=== PATIENT | male | born 1935 | race Caucasian/White ===

== ENCOUNTER 2020-04-10 07:58 | Outpatient (CLI) | payer MEDICARE, OTHER, SELFPAY ==
[2020-04-10] VITALS (12 sets, daily range): BP systolic 132–158; BP diastolic 58–75; PULSE 72–93; RESP 18–22; TEMP 36.7–37.2; O2SAT 99–100; BMI 19.1
[2020-04-10 09:34] LABS: Hematocrit 23.7 % (42.0-52.0)
[2020-04-10] MEDS: diphenhydrAMINE 25 mg Capsule PO (10:30)
[2020-04-10] MEDS: acetaminophen 325 mg Tablet PO (10:30)
[2020-04-10] MEDS: sodium chloride 0.9% (100 ml) 100 ML 50 ML (10:35)
== END 2020-04-10 07:59 | disposition home or self-care (01) ==
LOC: GILAB 08:04
PROVIDERS: Physician Assistant; PCP Family Medicine; Visit Provider Family Medicine
DX: K92.2 Gastrointestinal hemorrhage, unspecified (principal)
CPT/HCPCS: 36430; 85014; 85018; 86850; 86900; 86920; P9016

== ENCOUNTER 2020-06-08 19:50 | Outpatient (CLI) | payer MEDICARE, OTHER, SELFPAY ==
[2020-06-08 20:22] LABS: Hematocrit 25.1 % (42.0-52.0); Hemoglobin 7.7 g/dL (11.7-16.6); Mean Corpuscular HGB Conc 30.7 g/dL (30.0-36.0); Mean Corpuscular Hemoglobin 26.1 pg (28.0-34.0); Mean Corpuscular Volume 85.1 fL (80-94); Mean Platelet Volume 10.2 fL (7.4-10.4); Platelet Count 449 10^3/cmm (130-400); Red Blood Count 2.95 10^6/uL (4.1-5.3); Red Cell Distribution Width 14.7 % (12.1-15.1)
[2020-06-08 20:34] LABS: Absolute Eosinophils 0.2 10^3/cmm (0.0-0.7); Absolute Segmented Neutrophil 7.1 10/cmm (1.6-7.1); Eosinophils 3 %; Lymphocytes 9 %; Monocytes Absolute 0.8 10^3/cmm (0.1-0.6); Platelet Estimate Normal (Normal); Segmented Neutrophils 79 %; Total Cells Counted 100 (0-100)
[2020-06-08 20:46] LABS: Alanine Aminotransferase 7 U/L (0-41); Albumin Level 3.4 g/dL (3.5-5.2); Alkaline Phosphatase 87 IU/L (40-130); Anion Gap 15.7 (5-19); Aspartate Amino Transferase 9 U/L (0-40); Blood Urea Nitrogen 28 mg/dL (8-23); Calcium 8.3 mg/dL (8.5-10.5); Carbon Dioxide 23 mmol/L (22-29); Chloride 103 mmol/L (98-107); Globulin 3.5 g/dL (1.3-4.6); Glucose 145 mg/dL (65-115); Osmolality Calculated 284 mOsm/kg (285-295); Potassium 4.7 mmol/L (3.5-5.1); Sodium 137 mmol/L (136-145); Total Bilirubin 0.2 mg/dL (0.15-1.2); Total Protein 6.9 g/dL (6.6-8.7)
== END 2020-06-08 19:51 | disposition home or self-care (01) ==
LOC: LAB 19:53
PROVIDERS: PCP Family Medicine; Visit Provider Family Medicine
DX: R50.9 Fever, unspecified (principal)
CPT/HCPCS: 80053; 85007; 85027; 87040

== ENCOUNTER → 2020-09-02 07:18 | Day surgery (SDC) | payer MEDICARE, OTHER, SELFPAY ==
[2020-09-02] VITALS (9 sets, daily range): BP systolic 153–167; BP diastolic 71–92; PULSE 63–98; RESP 18–20; TEMP 37–37.2; O2SAT 96–164
== END ==
PROVIDERS: PCP Family Medicine; Visit Provider Family Medicine
DX: K92.2 Gastrointestinal hemorrhage, unspecified (principal); D64.9 Anemia, unspecified
CPT/HCPCS: 36430; 86850; 86900; 86920; P9016